=== PATIENT | female | born 1970 | race Caucasian/White ===

== ENCOUNTER 2018-07-22 02:56 | Inpatient (IN) ==
[2018-07-22] MEDS ORDERED: 0.9 % Sodium Chloride 1,000 ML IVC ONE (03:02)
[2018-07-22] MEDS ORDERED: methylPREDNISolone 125 MG/2 ML VIAL IVP ONE (03:02)
[2018-07-22] MEDS ORDERED: Ipratropium/Albuterol Neb 3 ML IH ONE (03:02)
--- NOTE | 2018-07-22 03:08 | Emergency Department Note ---
Disposition Clinical Impression: COPD exacerbation, Hypoxia Disposition: Admitted As Inpatient Condition: Fair SOB HPI - General Chief Complaint: ED Shortness of Breath/Dyspnea Stated Complaint: jonn Time Seen by Provider: 07/22/18 02:58 Source: patient, EMS Mode of arrival: EMS Limitations: no limitations Nursing Notes Reviewed: Yes Vital Signs Reviewed: Yes - History of Present Illness 47-year-old female persists for evaluation of dyspnea. Does have known COPD. Patient does not wear oxygen at home. Patient states she has been out of her medications for the past 3 days. Patient does note some chest pain as well as a productive cough that started today. Patient states she quit smoking yesterday. Denies any abdominal pain. No nausea vomiting. Upon EMS arrival the patient received single DuoNeb prior to arrival. - Related Data Previous Rx's Medication Instructions Recorded Ibuprofen [Motrin] 600 mg PO Q8HR PRN #20 tab 07/24/16 traMADol [Ultram] 50 - 100 mg PO Q8HR PRN #20 tablet 07/24/16 Albuterol Sulfate [Albuterol 2 puff IH Q4HR PRN #1 hfa.aer.ad 12/07/17 Inhaler] RX: Doxycycline 100 mg PO BID 7 Days #14 capsule 12/07/17 predniSONE [PredniSONE] 40 mg PO DAILY 4 Days #8 tablet 12/07/17 Allergies Allergy/AdvReac Type Severity Reaction Status Date / Time No Known Allergies Allergy Verified 07/24/16 10:56 All systems ED: reviewed and negative except as stated. Constitutional: Denies: fever Cardiovascular: Reports: chest pain Respiratory: Reports: cough, dyspnea, wheezes, sputum production Past Medical History - Past Medical History Source: patient Medical history: Reports: asthma, COPD Psychiatric history: Reports: anxiety, depression - Social History Smoking Status: Current every day smoker Smokeless Tobacco Status: No Alcohol use: Reports: none Drug use: Reports: none Physical Exam - General Limitations: no limitations General appearance: alert, in distress - Head Head exam: atraumatic, normocephalic, normal inspection - Eye Eye exam: Present: normal appearance - ENT ENT exam: normal exam, normal oropharynx - Neck Neck exam: Present: normal inspection - Chest Chest inspection: Present: normal inspection, symmetric chest wall rise - Respiratory Respiratory exam: Present: respiratory distress, wheezes (inspiratory and expiratory scatter wheeze), accessory muscle use, prolonged expiratory phase - Cardiovascular Cardiovascular exam: Present: regular rate, tachycardia. Absent: systolic murm ur - Abdominal Exam Abdominal exam: Present: soft, Non-Tender - Extremities Exam Extremities exam: Present: normal inspection. Absent: pedal edema - Back Exam Back exam: Present: normal inspection - Neurological Exam Neurological exam: Present: alert, oriented X3 - Skin Skin exam: Present: warm, dry, intact, normal color Course Course Narrative: Patient seen and examined. Patient is in moderate respiratory distress. A shunt will get BiPAP as well as aerosols and steroids. Patient will get labs chest x-ray. Disposition likely admission for COPD exacerbation versus pneumonia. - Reevaluation(s) Reevaluation #1: Patient seen and examined. Patient's breathing has improved however the patient continues to have diffuse inspiratory respiratory wheezing. Patient will be given additional aerosols. Patient states that she does not want to be intubated Time: 03:29 Reevaluation #2: Patient breathing has improved. Time: 04:24 Reevaluation #3: Resting comfortably without any acute distress. Time: 05:49 Vital Signs Temperature 97.8 F 07/22/18 03:00 Pulse Rate 113 07/22/18 03:00 Respiratory Rate 21 07/22/18 03:00 Blood Pressure 153/104 07/22/18 03:00 O2 Sat by Pulse Oximetry 94 07/22/18 03:00 Temperature 97.8 F 07/22/18 03:00 Pulse Rate 130 07/22/18 04:14 Respiratory Rate 25 07/22/18 04:14 Blood Pressure 152/104 07/22/18 04:14 O2 Sat by Pulse Oximetry 99 07/22/18 04:14 Oxygen Delivery Oxygen Delivery Bipap Shortness of Breath/Dyspnea - [facility] Narrative Medical decision making narrative: Patient presents with a history of COPD. On arrival the patient's tachycardic and tachypnea. Patient had BiPAP initially placed upon arrival given her degree of tachypnea. Patient had diffuse inspiratory expiratory audible wheezes. Pat ient was treated with triple nebs as well as IV steroids. Patient was given additional albuterol. Patient's been resting comfortably. Lungs appear with better aeration. Patient's chest x-ray shows no pneumonia. Patient was started on antibiotics due to the degree of her respiratory distress. Patient states that she would not want to be intubated if her breathing were to decline. Patient also has not requirement which she does not have at baseline. Patient will be admitted for COPD exacerbation with continued aerosols, steroids and oxygen support. Patient's symptoms are not consistent with a PE or ACS. - Lab Data Result diagrams: 07/22/18 04:26 07/22/18 04:26 Lab Results 07/22/18 07/22/18 07/22/18 Range/Units 03:44 04:26 04:26 WBC 8.1 (4.3-11.1) K/mcL RBC 4.00 (3.82-4.97) M/mcL Hgb 11.9 (11.5-15.4) g/dL Hct 35.2 L (35.3-44.9) % MCV 88.0 (83.0-100.0) fL MCH 29.8 (28.0-33.3) pg MCHC 33.8 (31.6-35.5) g/dL RDW 11.7 (11.5-14.5) % Plt Count 258 (140-400) K/mcL MPV 9.7 (9.4-12.4) fL Immature Gran % 0.6 (0-4) % Seg Neutrophils % 80.8 % Lymphocytes % 8.4 % Monocytes % 6.2 % Eosinophils % 3.4 % Basophils % 0.6 % Neutrophils # 6.6 (1.6-8.9) K/mcL Lymphocytes # 0.7 (0.6-4.6) K/mcL Monocytes # 0.5 (0.0-1.3) K/mcL Eosinophils # 0.3 (0.0-0.6) K/mcL Basophils # 0.1 (0.0-0.2) K/mcL Sample Site R Radial ABG pH 7.38 (7.32-7.45) pH Units ABG pCO2 40 (35-45) mmHg ABG pO2 72 L (85-104) mmHg ABG HCO3 24 (21-27) mEq/L ABG Total CO2 25 (20-26) mEq/L ABG O2 Saturation 94 L (95-98) % ABG Base Excess -1 (-2 to 3) mEq/L [place]ver Test Positive O2 Delivery Device BiPAP Inspired O2 28.0 (1-15=lpm [id number]=%) Sodium 134 L (136-145) mEq/L Potassium 3.8 (3.5-5.1) mEq/L Chloride 107 (98-107) mEq/L Carbon Dioxide 23 (23-29) mEq/L BUN 12 (6-20) mg/dL Creatinine 0.60 (0.60-1.20) mg/dL Est GFR ( Amer) > 60 (> 60) Est GFR (Non-Af Amer) > 60 (> 60) BUN/Creatinine Ratio 20 (6-26) Glucose 185 H (70-105) mg/dL Calculated Osmolality 283 (280-300) Lactic Acid (0.5-2.2) mmol/L Calcium 8.7 (8.6-10.3) mg/dL Troponin I < 0.03 (< 0.04) ng/mL B-Natriuretic Peptide (Less than 100) pg/mL 07/22/18 07/22/18 Range/Units 04:26 04:26 WBC (4.3-11.1) K/mcL RBC (3.82-4.97) M/mcL Hgb (11.5-15.4) g/dL Hct (35.3-44.9) % MCV (83.0-100.0) fL MCH (28.0-33.3) pg MCHC (31.6-35.5) g/dL RDW (11.5-14.5) % Plt Count (140-400) K/mcL MPV (9.4-12.4) fL Immature Gran % (0-4) % Seg Neutrophils % % Lymphocytes % % Monocytes % % Eosinophils % % Basophils % % Neutrophils # (1.6-8.9) K/mcL Lymphocytes # (0.6-4.6) K/mcL Monocytes # (0.0-1.3) K/mcL Eosinophils # (0.0-0.6) K/mcL Basophils # (0.0-0.2) K/mcL Sample Site ABG pH (7.32-7.45) pH Units ABG pCO2 (35-45) mmHg ABG pO2 (85-104) mmHg ABG HCO3 (21-27) mEq/L ABG Total CO2 (20-26) mEq/L ABG O2 Saturation (95-98) % ABG Base Excess (-2 to 3) mEq/L Trever Test O2 Delivery Device Inspired O2 (1-15=lpm [id number]=%) Sodium (136-145) mEq/L Potassium (3.5-5.1) mEq/L Chloride (98-107) mEq/L Carbon Dioxide (23-29) mEq/L BUN (6-20) mg/dL Creatinine (0.60-1.20) mg/dL Est GFR ( Amer) (> 60) Est GFR (Non-Af Amer) (> 60) BUN/Creatinine Ratio (6-26) Glucose (70-105) mg/dL Calculated Osmolality (280-300) Lactic Acid 2.0 (0.5-2.2) mmol/L Calcium (8.6-10.3) mg/dL Troponin I (< 0.04) ng/mL B-Natriuretic Peptide 41 (Less than 100) pg/mL - Radiology Data Radiology results reviewed: Yes I reviewed the patient's radiology results. Chest X-Ray 07/22/18 03:02 IMPRESSION: Hyperinflation with mild bronchial wall thickening. No confluent pneumonia. D/ / Sung Macias MD / Sung Macias MD Interpreting Provider: Sung Macias MD - EKG Data EKG attestation: Yes I reviewed and interpreted this EKG. EKG shows normal: Reports: sinus rhythm Rate: Reports: tachycardia Rhythm: Reports: NSR [place]/QRS: Reports: normal P waves: Reports: KEVIN T wave inversions noted in: Reports: v1 (flattened) Interpretation: Reports: no acute changes, nonspecific ST-T wave changes S.B.A.R. - S.B.A.R. Situation: Demographics Background: Presenting Complaint Assessment: Vital Signs, Course and respsone to treatment, Patient/Family Expectation Recommendation: Barrier(s) to disposition, Recommendation based on pending studies, treatments, or consults S.B.A.R. Report Given to: Dr. Antwon LovellBCherylAGil Repor Time: 05:06 Attestation Statement - Attestation Attestation: I examined this patient and my medical decision-making was reviewed with the Resident Physician. I agree with the documented findings, disposition and treatment plan as described except to the extent set forth below. Findings consistent with acute on chronic respiratory failure. Now with COPD exacerbation. Patient was placed on BiPAP. Antibiotics, steroids, bro nchodilators. Admit for further management and workup. 35 minutes of critical care time spent excluding billable procedures.
[2018-07-22] MEDS ORDERED: Albuterol 2.5 MG/3 ML NEBULIZER IH ONE (03:27)
[2018-07-22] MEDS ORDERED: Ketorolac 15 MG/ML VIAL IVP ONE (03:32)
[2018-07-22] MEDS ORDERED: *HR* LORazepam 2 MG/ML VIAL IVP ONE (03:40)
[2018-07-22] MEDS ORDERED: cefTRIAXone 1,000 MG in Water for inj. (sterile) 20 ML 10 ML IVP ONE (03:41)
[2018-07-22] MEDS ORDERED: Azithromycin 500 MG in D5% in Water 250 ML IVPB ONE (03:42)
[2018-07-22 03:53] LABS: ABG Base Excess -1 mEq/L (-2 to 3); ABG HCO3 24 mEq/L (21-27); ABG Oxygen Saturation 94 % (95-98); ABG PCO2 40 mmHg (35-45); ABG PH 7.38 pH Units (7.32-7.45); ABG PO2 72 mmHg (85-104); ABG TCO2 25 mEq/L (20-26)
[2018-07-22 04:52] LABS: Basophils # 0.1 K/mcL (0.0-0.2); Basophils % 0.6 %; Eosinophils # 0.3 K/mcL (0.0-0.6); Eosinophils % 3.4 %; Hematocrit 35.2 % (35.3-44.9); Hemoglobin 11.9 g/dL (11.5-15.4); Immature Granulocytes % 0.6 % (0-4); Lymphocytes # 0.7 K/mcL (0.6-4.6); Lymphocytes % 8.4 %; Mean Corpuscular HGB Conc 33.8 g/dL (31.6-35.5); Mean Corpuscular Hemoglobin 29.8 pg (28.0-33.3); Mean Platelet Volume 9.7 fL (9.4-12.4); Monocytes # 0.5 K/mcL (0.0-1.3); Monocytes % 6.2 %; Neutrophils # 6.6 K/mcL (1.6-8.9); Platelet Count 258 K/mcL (140-400); Red Cell Distribution Width 11.7 % (11.5-14.5); Segmented Neutrophils % 80.8 %
[2018-07-22 05:03] LABS: BUN/Creatinine Ratio 20 (6-26); Blood Urea Nitrogen 12 mg/dL (6-20); Calcium 8.7 mg/dL (8.6-10.3); Carbon Dioxide 23 mEq/L (23-29); Chloride 107 mEq/L (98-107); Glucose 185 mg/dL (70-105); Osmolality,Calculated 283 (280-300); Potassium 3.8 mEq/L (3.5-5.1); Sodium 134 mEq/L (136-145); eGFR For Non-African Americans > 60 (> 60)
[2018-07-22 05:05] LABS: Troponin I < 0.03 ng/mL (< 0.04)
[2018-07-22] MEDS ORDERED: 0.9 % Sodium Chloride 1,000 ML IVC SCH ×2 (05:15→18:36)
--- NOTE | 2018-07-22 07:50 | Internal Med History&Physical ---
Date of Encounter: 07/22/18 Time of Encounter: 07:50 Internal Medicine - H&P: HPI History of present illness: Ms. Pennington is a 47 year old female with PMH of COPD who presented for evaluation of progressive worsening of dyspnea associated cough and productive cough after running out of her medications for the past 3 days. Patient states she quit smoking yesterday. Denies any abdominal pain. No nausea vomiting. She was admitted for further evaluation and management. Past Med Surg Social Fam HX - Past Medical History Medical history: asthma, COPD Psychiatric history: anxiety, depression - Social History Smoking Status: Current every day smoker Smokeless Tobacco Status: No Alcohol use: none Drug use: none - Family History Mother Living Status: Still Living Hx Family Cancer: Yes (breast cancer) Internal Medicine - H&P: Meds RX: Diclofenac Sodium [Voltaren] 75 mg PO BID 07/22/18 [History] RX: Guaifenesin [Mucinex] 600 mg PO BID 07/22/18 [History] RX: HydrOXYzine 10 mg PO Q6H PRN 07/22/18 [History] RX: Montelukast [Singulair] 10 mg PO DAILY 07/22/18 [History] RX: traZODone [TraZODone] 50 mg PO HS 07/22/18 [History] Azithromycin [Azithromycin 6-Tab Pack] 250 mg PO PER PKG DI 5 Days #6 tab 07/25/18 [Rx] RX: Albuterol Sulfate [Albuterol Inhaler] 2 puff IH Q4HR PRN 30 Days #30 hfa.aer.ad 07/25/18 [Rx] RX: Citalopram Hydrobromide [Citalopram HBr] 20 mg PO DAILY 30 Days #30 tablet 07/25/18 [Rx] RX: Fluticasone/Vilanterol [Breo Ellipta 100-25 Mcg INH] 1 puff IH DAILY 30 Days #1 blst.w.dev 07/25/18 [Rx] RX: Tiotropium [place] [Spiriva Respimat] 2 puff IH DAILY 30 Days #1 mist.inhal 07/25/18 [Rx] predniSONE [PredniSONE] 40 mg PO DAILY 5 Days #10 tablet 07/25/18 [Rx] Allergy/AdvReac Type Severity Reaction Status Date / Time No Known Allergies Allergy Verified 07/24/16 10:56 All Systems PM: A 10-system review of systems was performed and is negative for pertinent findings except as documented above in the HPI. - Constitutional Constitutional: no chills, no fever(s), no night sweats - Cardiovascular Cardiovascular ROS IM: dyspnea, no chest pain, no diaphoresis, no lightheadedness, no palpitations, no syncope - Respiratory Respiratory: cough, dyspnea, wheezing, no excessive phlegm production - Gastrointestinal Gastrointestinal: no abdominal pain, no diarrhea, no hematemesis, no hematochezia, no melena, no nausea, no vomiting - Neurological Neurological ROS: no confusion, no convulsions, no focal weakness, no numbness, no tingling, no tremor(s) - Constitutional Vitals: Temp Pulse Resp BP Pulse Ox 98.2 F 121 22 159/110 95 07/22/18 06:23 07/22/18 06:23 07/22/18 06:23 07/22/18 06:23 07/22/18 06:47 General appearance: Present: A&O X 3 Exam: As below - Head Head exam: Present: atraumatic, normocephalic - Neck Neck exam general surgery: Present: supple, trachea midline. Absent: lymphadenopathy - Respiratory Respiratory exam: Present: decreased breath sounds, rhonchi, wheezes. Absent: accessory muscle use, rales - Cardiovascular Cardiovascular exam: Present: RRR, +S1, +S2. Absent: diastolic murmur, gallop, rubs, systolic murmur - GI/Abdominal GI/Abdominal exam: Present: normal bowel sounds, soft, no peritoneal signs. Absent: distended, tenderness - Extremities Exam Extremities exam: Present: warm, radial pulses palpable and symmetrical. Absent: calf tenderness, cyanotic, pedal edema Internal Med - H&P Results - Labs CBC & Chem 7: 07/25/18 03:25 07/25/18 03:25 Labs: Short CBC 07/22/18 Range/Units 04:26 WBC 8.1 (4.3-11.1) K/mcL Hgb 11.9 (11.5-15.4) g/dL Hct 35.2 L (35.3-44.9) % Plt Count 258 (140-400) K/mcL Neutrophils # 6.6 (1.6-8.9) K/mcL BMP 07/22/18 04:26 Sodium 134 L Potassium 3.8 Chloride 107 Carbon Dioxide 23 BUN 12 Creatinine 0.60 Glucose 185 H Calcium 8.7 Cardiac Enzymes 07/22/18 Range/Units 04:26 Troponin I < 0.03 (< 0.04) ng/mL - ABG Interpretation ABG results: 07/22/18 03:44 ABG pH 7.38 ABG pCO2 40 ABG pO2 72 L ABG HCO3 24 ABG Total CO2 25 ABG O2 Saturation 94 L ABG Base Excess -1 - Impressions ITS Impressions Chest X-Ray 07/22/18 03:02 IMPRESSION: Hyperinflation with mild bronchial wall thickening. No confluent pneumonia. D/ / Sung Macias MD / Sung Macias MD Interpreting Provider: Sung Macias MD - Assessment and plan (1) COPD exacerbation Status: Acute Assessment and plan: - SOB due to *Asthma exacerbation caused by URTI, medication nonocompliance PLAN: - Aerosols q 4 hr and PRN SOB - Solu-medrol 40 mg IV q 6 hr - O2 to keep SpO2 higher than 92% (SpO higher than 95% if CAD) - CBCD, BMP in AM - Sputum Gram stain, C+S - Tylenol 650 mg PO q 4-6 hr PRN pain/fever - Heparin 5000 U SQ BID - Home meds - check the list and restart - ABs (2) Tachycardia Status: Acute Assessment and plan: She appeared to be on the dry side, will start fluid hydration. (3) Anxiety Status: Acute Assessment and plan: We will cont home meds (4) Depression Status: Acute Assessment and plan: Continue home meds Qualifiers: Qualified Code(s): F32.9 - Major depressive disorder, single episode, unspecified (5) DVT prophylaxis Status: Acute Assessment and plan: Heparin 5000 BID - Time Spent With Patient Total time spent is greater than 50% in coordination of care (as documented) at patient's floor/unit and/or counseling patient:
[2018-07-22] MEDS ORDERED: Naloxone 0.4 MG/ML INJ IVP PRN (08:42)
[2018-07-22 09:53] LABS: Chol/HDL Ratio 3.6 (0-4.9)
[2018-07-22] MEDS: MethylPREDNISolone 40 MG/ML VIAL IVP SCH ×3 (11:35→23:50)
[2018-07-22] MEDS: Diclofenac Sodium 75 MG TABLET PO SCH ×2 (14:14→20:02)
[2018-07-22] MEDS: Ipratropium/Albuterol Neb 3 ML IH SCH ×2 (16:29→20:27)
[2018-07-22 17:10] LABS: Bilirubin,Urine Negative (Negative); Blood,Urine Moderate (Negative); Clarity,Urine Clear (Clear); Color,Urine Yellow (Yellow); Glucose,Urine (UA) 100 mg/dL (Normal); Ketones,Urine Trace mg/dL (Negative); Leukocyte Esterase,Urine Negative (Negative); Nitrite,Urine Negative (Negative); Protein,Urine 30 mg/dL (Neg-Trace); Specific Gravity,Urine > 1.030 (1.010-1.025); Urobilinogen,Urine Normal (Normal)
[2018-07-22 17:12] LABS: Bacteria,Urine None Seen per hpf (None-Few); Hyaline Casts,Urine None Seen per lpf (None-Few); RBC,Urine 15-30 per hpf (0-3); Squamous Epithelial Cell,Urine Many per lpf (None-Few); WBC,Urine 0-3 per hpf (0-3)
[2018-07-22] MEDS: Acetaminophen 325 MG TABLET PO PRN (19:35)
[2018-07-22] MEDS: traZODone 50 MG TABLET PO SCH (20:02)
[2018-07-22] MEDS: *HR* Heparin 5,000 UNIT/ML VIAL SQ SCH (23:49)
[2018-07-23] MEDS: cefTRIAXone 1,000 MG in Water for inj. (sterile) 20 ML 10 ML IVP SCH (03:44)
[2018-07-23] MEDS: Azithromycin 500 MG in D5% in Water 250 ML IVPB SCH (03:44)
[2018-07-23] MEDS: Ipratropium/Albuterol Neb 3 ML IH SCH ×4 (03:51→22:00)
[2018-07-23 06:02] LABS: Hematocrit 32.5 % (35.3-44.9); Hemoglobin 11.1 g/dL (11.5-15.4); Mean Corpuscular HGB Conc 34.2 g/dL (31.6-35.5); Mean Corpuscular Hemoglobin 30.2 pg (28.0-33.3); Mean Corpuscular Volume 88.6 fL (83.0-100.0); Mean Platelet Volume 9.9 fL (9.4-12.4); Platelet Count 268 K/mcL (140-400); Red Blood Count 3.67 M/mcL (3.82-4.97); Red Cell Distribution Width 11.8 % (11.5-14.5)
[2018-07-23] MEDS: *HR* Heparin 5,000 UNIT/ML VIAL SQ SCH ×3 (06:10→21:05)
[2018-07-23] MEDS: MethylPREDNISolone 40 MG/ML VIAL IVP SCH ×3 (06:11→18:35)
[2018-07-23 06:34] LABS: Alanine Aminotransferase 16 Units/L (7-52); Albumin 3.9 g/dL (3.5-5.7); Albumin/Globulin Ratio 1.8 (1.1-2.2); Alkaline Phosphatase 63 Units/L (34-104); Aspartate Amino Transferase 11 Units/L (13-39); BUN/Creatinine Ratio 22 (6-26); Bilirubin,Total 0.2 mg/dL (0.3-1.0); Blood Urea Nitrogen 14 mg/dL (6-20); Carbon Dioxide 23 mEq/L (23-29); Chloride 105 mEq/L (98-107); Globulin 2.2 g/dL (2.4-3.5); Glucose 206 mg/dL (70-105); Osmolality,Calculated 286 (280-300); Phosphorous 4.1 mg/dL (2.7-4.5); Potassium 4.1 mEq/L (3.5-5.1); Sodium 135 mEq/L (136-145); Total Protein 6.1 g/dL (6.4-8.9); eGFR For Non-African Americans > 60 (> 60)
[2018-07-23] MEDS ORDERED: (Tiotropium Bromide [Spiriva Respimat] 2 PUFF) IH SCH (10:00)
[2018-07-23] MEDS ORDERED: (Fluticasone/Vilanterol [Breo Ellipta 100-25 Mcg Inh]) IH SCH (10:00)
[2018-07-23] MEDS: Acetaminophen 325 MG TABLET PO PRN (10:14)
[2018-07-23] MEDS: Diclofenac Sodium 75 MG TABLET PO SCH ×2 (10:14→21:05)
--- NOTE | 2018-07-23 10:18 | Internal Med Progress Note ---
Hospitalist Progress Note - Encounter Date of Encounter: 07/23/18 Time of Encounter: 10:00 - Exam Vitals: Temp Pulse Resp BP Pulse Ox 97.3 F L 89 20 129/93 97 07/23/18 07:07 07/23/18 07:07 07/23/18 07:07 07/23/18 07:07 07/23/18 07:07 Exam: Gen - Awake, alert, oriented x 3, no acute distress HEENT - NCAT, PERRLA, EOMI, hearing grossly intact, oropharynx benign CV - RRR, normal S1 and S2, no M/R/G, no BLE edema Resp -Has diffuse wheezes GI - Soft, NT/ND, no masses, normal bowel sounds, Skin - Warm, dry, no rashes/lesions/ulcers Psych - Normal mood and affect, no depression or anxiety - Assessment and Plan (1) Acute respiratory failure with hypoxia Current Visit: Yes Status: Acute Assessment and Plan: Likely secondary to acute COPD exacerbation. Patient requiring up to 4L to keep her sats above 93%. Wean off as tolerated Continue BIPAP, nebs, steroids and antibiotics (2) COPD exacerbation Current Visit: Yes Status: Acute Assessment and Plan: Acute hypoxic respiratory with acute COPD exacerbation Will continue on duonebs, IV steroids and antibiotics. Continue BIPAP as needed (3) Tachycardia Current Visit: Yes Status: Acute Assessment and Plan: Continue IV fluids. CT angio negative for PE, showed evidence of advanced emphysema (4) Anxiety Current Visit: Yes Status: Acute Assessment and Plan: We will cont home meds (5) Depression Current Visit: Yes Status: Acute (6) DVT prophylaxis Current Visit: Yes Status: Acute Assessment and Plan: Heparin 5000 BID - Time Spent with Patient Total time spent is greater than 50% in coordination of care (as documented) at patient's floor/unit and/or counseling patient: Internal Medicine: Result - Labs CBC & Chem 7: 07/23/18 05:18 07/23/18 05:18 Labs: Short CBC 07/23/18 Range/Units 05:18 WBC 10.5 (4.3-11.1) K/mcL Hgb 11.1 L (11.5-15.4) g/dL Hct 32.5 L (35.3-44.9) % Plt Count 268 (140-400) K/mcL BMP 07/23/18 05:18 Sodium 135 L Potassium 4.1 Chloride 105 Carbon Dioxide 23 BUN 14 Creatinine 0.65 Glucose 206 H Calcium 9.0 Cardiac Enzymes 07/22/18 07/22/18 Range/Units 14:32 20:59 Troponin I < 0.03 < 0.03 (< 0.04) ng/mL Liver Function 07/23/18 Range/Units 05:18 Total Bilirubin 0.2 L (0.3-1.0) mg/dL AST 11 L (13-39) Units/L ALT 16 (7-52) Units/L Alkaline Phosphatase 63 (34-104) Units/L Albumin 3.9 (3.5-5.7) g/dL Urine 07/22/18 Range/Units 17:00 Urine Color Yellow (Yellow) Urine Clarity Clear (Clear) Urine pH 6.0 (5.0-8.0) pH Units Ur Specific [place] > 1.030 H (1.010-1.025) Urine Protein 30 H (Neg-Trace) mg/dL Urine Glucose (UA) 100 H (Normal) mg/dL - ABG Interpretation ABG results: ABG ABG pH 7.38 pH Units (7.32-7.45) 07/22/18 03:44 ABG pCO2 40 mmHg (35-45) 07/22/18 03:44 ABG pO2 72 mmHg (85-104) L 07/22/18 03:44 ABG O2 Saturation 94 % (95-98) L 07/22/18 03:44 Consult Discharge Plan - Plan Referrals: NONE,PCP [Primary Care Provider] -
[2018-07-23] MEDS ORDERED: Isovue-370 500 ML INFUS..BTL IV ONE (12:07)
[2018-07-23] MEDS: 0.9 % Sodium Chloride 1,000 ML IVC SCH (15:09)
[2018-07-23] MEDS: traZODone 50 MG TABLET PO SCH (21:05)
[2018-07-24] MEDS: 0.9 % Sodium Chloride 1,000 ML IVC SCH ×3 (00:54→23:01)
[2018-07-24] MEDS: Ipratropium/Albuterol Neb 3 ML IH SCH ×4 (03:17→21:55)
[2018-07-24] MEDS: cefTRIAXone 1,000 MG in Water for inj. (sterile) 20 ML 10 ML IVP SCH (03:45)
[2018-07-24] MEDS: Azithromycin 500 MG in D5% in Water 250 ML IVPB SCH (03:46)
[2018-07-24 04:33] LABS: Basophils % 0.1 %; Hematocrit 32.2 % (35.3-44.9); Hemoglobin 10.7 g/dL (11.5-15.4); Immature Granulocytes % 1.1 % (0-4); Lymphocytes # 1.2 K/mcL (0.6-4.6); Lymphocytes % 11.3 %; Mean Corpuscular HGB Conc 33.2 g/dL (31.6-35.5); Mean Corpuscular Hemoglobin 29.9 pg (28.0-33.3); Mean Corpuscular Volume 89.9 fL (83.0-100.0); Mean Platelet Volume 9.8 fL (9.4-12.4); Monocytes # 0.5 K/mcL (0.0-1.3); Neutrophils # 8.5 K/mcL (1.6-8.9); Platelet Count 263 K/mcL (140-400); Red Blood Count 3.58 M/mcL (3.82-4.97); Red Cell Distribution Width 11.8 % (11.5-14.5); Segmented Neutrophils % 82.5 %
[2018-07-24 04:50] LABS: BUN/Creatinine Ratio 28 (6-26); Blood Urea Nitrogen 17 mg/dL (6-20); Calcium 8.9 mg/dL (8.6-10.3); Carbon Dioxide 24 mEq/L (23-29); Chloride 106 mEq/L (98-107); Glucose 152 mg/dL (70-105); Osmolality,Calculated 287 (280-300); Phosphorous 4.4 mg/dL (2.7-4.5); Potassium 4.4 mEq/L (3.5-5.1); Sodium 136 mEq/L (136-145); eGFR For Non-African Americans > 60 (> 60)
[2018-07-24] MEDS: MethylPREDNISolone 40 MG/ML VIAL IVP SCH ×2 (06:15→17:07)
[2018-07-24] MEDS: *HR* Heparin 5,000 UNIT/ML VIAL SQ SCH ×3 (06:15→23:01)
[2018-07-24] MEDS: Diclofenac Sodium 75 MG TABLET PO SCH ×2 (10:01→19:59)
[2018-07-24] MEDS: Acetaminophen 325 MG TABLET PO PRN (10:04)
[2018-07-24] MEDS: Budesonide/Formoterol 160/4.5 1 PUFF INH IH SCH ×2 (10:37→21:55)
--- NOTE | 2018-07-24 10:45 | Internal Med Progress Note ---
Hospitalist Progress Note - Encounter Date of Encounter: 07/24/18 Time of Encounter: 08:30 - Exam Vitals: Temp Pulse Resp BP Pulse Ox 98.7 F 89 17 126/83 100 07/23/18 22:18 07/24/18 06:37 07/24/18 06:37 07/24/18 06:37 07/24/18 06:37 Exam: Gen - Awake, alert, oriented x 3, no acute distress HEENT - NCAT, PERRLA, EOMI, hearing grossly intact, oropharynx benign CV - RRR, normal S1 and S2, no M/R/G, no BLE edema Resp -Has diffuse wheezes GI - Soft, NT/ND, no masses, normal bowel sounds, Skin - Warm, dry, no rashes/lesions/ulcers Psych - Normal mood and affect, no depression or anxiety - Assessment and Plan (1) Acute respiratory failure with hypoxia Current Visit: Yes Status: Acute Assessment and Plan: Likely secondary to acute COPD exacerbation. Patient requiring up to 4L to keep her sats above 93%. Wean off as tolerated Continue BIPAP, nebs, steroids and antibiotics (2) COPD exacerbation Current Visit: Yes Status: Acute Assessment and Plan: Acute hypoxic respiratory with acute COPD exacerbation Will continue on duonebs, IV steroids and antibiotics. Continue BIPAP as needed (3) Tachycardia Current Visit: Yes Status: Acute Assessment and Plan: Continue IV fluids. CT angio negative for PE, showed evidence of advanced emphysema HR more controlled now with hydration (4) Anxiety Current Visit: Yes Status: Acute Assessment and Plan: We will cont home meds (5) Depression Current Visit: Yes Status: Acute Assessment and Plan: Continue home meds (6) DVT prophylaxis Current Visit: Yes Status: Acute Assessment and Plan: Heparin 5000 BID - Time Spent with Patient Total time spent is greater than 50% in coordination of care (as documented) at patient's floor/unit and/or counseling patient: Internal Medicine: Result - Labs CBC & Chem 7: 07/24/18 04:16 07/24/18 04:16 Labs: Short CBC 07/24/18 Range/Units 04:16 WBC 10.3 (4.3-11.1) K/mcL Hgb 10.7 L (11.5-15.4) g/dL Hct 32.2 L (35.3-44.9) % Plt Count 263 (140-400) K/mcL Neutrophils # 8.5 (1.6-8.9) K/mcL BMP 07/24/18 04:16 Sodium 136 Potassium 4.4 Chloride 106 Carbon Dioxide 24 BUN 17 Creatinine 0.60 Glucose 152 H Calcium 8.9 - ABG Interpretation ABG results: ABG ABG pH 7.38 pH Units (7.32-7.45) 07/22/18 03:44 ABG pCO2 40 mmHg (35-45) 07/22/18 03:44 ABG pO2 72 mmHg (85-104) L 07/22/18 03:44 ABG O2 Saturation 94 % (95-98) L 07/22/18 03:44 - Impressions Impressions Chest CTA 07/23/18 14:00 IMPRESSION: No evidence of pulmonary embolism or acute pulmonary abnormality. Evidence of emphysema which is fairly advanced considering the patient's age. D/ / Polina Saldñaa MD / Polina Saldaña MD Interpreting Provider: Polina Saldaña MD Consult Discharge Plan - Plan Referrals: Arvin Watkins CNP [Non-Partnered Physician] - 07/29/18 9:15 am
[2018-07-24] MEDS: traZODone 50 MG TABLET PO SCH (19:59)
[2018-07-25] MEDS: cefTRIAXone 1,000 MG in Water for inj. (sterile) 20 ML 10 ML IVP SCH (03:47)
[2018-07-25] MEDS: Acetaminophen 325 MG TABLET PO PRN (03:53)
[2018-07-25] MEDS: Ipratropium/Albuterol Neb 3 ML IH SCH ×2 (04:22→10:59)
[2018-07-25 04:56] LABS: Basophils % 0.1 %; Hematocrit 31.1 % (35.3-44.9); Hemoglobin 10.3 g/dL (11.5-15.4); Immature Granulocytes % 1.6 % (0-4); Lymphocytes # 1.4 K/mcL (0.6-4.6); Mean Corpuscular HGB Conc 33.1 g/dL (31.6-35.5); Mean Corpuscular Hemoglobin 29.8 pg (28.0-33.3); Mean Corpuscular Volume 89.9 fL (83.0-100.0); Monocytes # 0.4 K/mcL (0.0-1.3); Monocytes % 6.1 %; Neutrophils # 4.8 K/mcL (1.6-8.9); Platelet Count 265 K/mcL (140-400); Red Blood Count 3.46 M/mcL (3.82-4.97); Red Cell Distribution Width 11.9 % (11.5-14.5); Segmented Neutrophils % 71.2 %
[2018-07-25 05:16] LABS: BUN/Creatinine Ratio 29 (6-26); Blood Urea Nitrogen 17 mg/dL (6-20); Calcium 8.8 mg/dL (8.6-10.3); Carbon Dioxide 26 mEq/L (23-29); Chloride 106 mEq/L (98-107); Glucose 120 mg/dL (70-105); Magnesium 1.9 mg/dL (1.6-2.6); Osmolality,Calculated 289 (280-300); Phosphorous 3.7 mg/dL (2.7-4.5); Potassium 3.9 mEq/L (3.5-5.1); Sodium 138 mEq/L (136-145); eGFR For Non-African Americans > 60 (> 60)
[2018-07-25] MEDS: MethylPREDNISolone 40 MG/ML VIAL IVP SCH (06:29)
[2018-07-25] MEDS: *HR* Heparin 5,000 UNIT/ML VIAL SQ SCH (06:29)
[2018-07-25 06:52] VITALS: BP 142/91
[2018-07-25] MEDS: Diclofenac Sodium 75 MG TABLET PO SCH (08:09)
[2018-07-25] MEDS: 0.9 % Sodium Chloride 1,000 ML IVC SCH (08:09)
[2018-07-25] MEDS ORDERED: Azithromycin 250 MG TABLET PO SCH (09:00)
--- NOTE | 2018-07-25 09:36 | Discharge Summary ---
Orders not resulted at time of discharge: Pending orders 07/26/18 04:00 Basic Metabolic Panel AM 0400 CBC [Complete Blood Count] [HEME] AM 0400 Magnesium AM 0400 Phosphorous AM 0400 07/27/18 04:00 Basic Metabolic Panel AM 0400 CBC [Complete Blood Count] [HEME] AM 0400 Magnesium AM 0400 Phosphorous AM 0400 07/28/18 04:00 Basic Metabolic Panel AM 0400 CBC [Complete Blood Count] [HEME] AM 0400 Magnesium AM 0400 Phosphorous AM 0400 07/29/18 04:00 Basic Metabolic Panel AM 0400 CBC [Complete Blood Count] [HEME] AM 0400 Magnesium AM 0400 Phosphorous AM 0400 Date of Encounter: 07/25/18 Time of Encounter: 09:30 - Discharge Diagnosis (1) Acute respiratory failure with hypoxia Priority: Primary Status: Acute Assessment and Plan: 47 year old female with PMH of COPD who presented for evaluation of progressive worsening of dyspnea associated cough and productive cough after running out of her medications for the past 3 days. Patient states she quit smoking the day prior to coming in. She was assessed with acute hypoxic respiratory failure likely secondary to acute COPD exacerbation. She was requiring up to 4L to keep her sats above 93% on admission. She was started on BIPAP, duonebs, steroids and antibiotics. She made a remarkable improvement and was able to weaned completely off supplemental oxygen. She was counseled regarding smoking cessation. She was discharged home to complete a course of prednisone and antibiotics. Her meds were refilled on discharge (2) COPD exacerbation Priority: Primary Status: Acute (3) Tachycardia Priority: Primary Status: Acute (4) Anxiety Priority: Primary Status: Acute (5) Depression Priority: Primary Status: Acute Qualifiers: Qualified Code(s): F32.9 - Major depressive disorder, single episode, unspecified (6) DVT prophylaxis Priority: Primary Status: Acute Hospital course: Ms. Pennington is a 47 year old female - Time Spent with Patient Total time spent providing and/or coordinating discharge services: - Discharge Medications Prescriptions: Albuterol Sulfate [Albuterol Inhaler] 2 puff IH Q4HR PRN 30 Days #30 hfa.aer.ad PRN Reason: wheeze Azithromycin [Azithromycin 6-Tab Pack] 250 mg PO PER PKG DI 5 Days #6 tab Citalopram Hydrobromide [Citalopram HBr] 20 mg PO DAILY 30 Days #30 tablet Fluticasone/Vilanterol [Breo Ellipta 100-25 Mcg INH] 1 puff IH DAILY 30 Days #1 blst.w.dev predniSONE [PredniSONE] 40 mg PO DAILY 5 Days #10 tablet Tiotropium [place] [Spiriva Respimat] 2 puff IH DAILY 30 Days #1 mist.inhal Home Medications: Diclofenac Sodium [Voltaren] 75 mg PO BID 07/22/18 [History] Guaifenesin [Mucinex] 600 mg PO BID 07/22/18 [History] HydrOXYzine 10 mg PO Q6H PRN 07/22/18 [History] Montelukast [Singulair] 10 mg PO DAILY 07/22/18 [History] traZODone [TraZODone] 50 mg PO HS 07/22/18 [History] Albuterol Sulfate [Albuterol Inhaler] 2 puff IH Q4HR PRN 30 Days #30 hfa.aer.ad 07/25/18 [Rx] Azithromycin [Azithromycin 6-Tab Pack] 250 mg PO PER PKG DI 5 Days #6 tab 07/25/18 [Rx] Citalopram Hydrobromide [Citalopram HBr] 20 mg PO DAILY 30 Days #30 tablet 07/25/18 [Rx] Fluticasone/Vilanterol [Breo Ellipta 100-25 Mcg INH] 1 puff IH DAILY 30 Days #1 blst.w.dev 07/25/18 [Rx] Tiotropium [place] [Spiriva Respimat] 2 puff IH DAILY 30 Days #1 mist.inhal 07/25/18 [Rx] predniSONE [PredniSONE] 40 mg PO DAILY 5 Days #10 tablet 07/25/18 [Rx] Allergies/Adverse Reactions: Allergy/AdvReac Type Severity Reaction Status Date / Time No Known Allergies Allergy Verified 07/24/16 10:56 Date of admission: 07/24/18 14:29 Primary care physician: PCP NONE Consults: 07/22/18 08:43 Consult to Nurse Navigator [CONS] Routine Comment: - Constitutional Vitals: Temp Pulse Resp BP Pulse Ox 97.6 F 93 17 142/91 95 07/25/18 06:51 07/25/18 06:51 07/25/18 06:51 07/25/18 06:51 07/25/18 06:51 General appearance: Present: A&O X 3 Exam: Gen - Awake, alert, oriented x 3, no acute distress HEENT - NCAT, PERRLA, EOMI, hearing grossly intact, oropharynx benign CV - RRR, normal S1 and S2, no M/R/G, no BLE edema Resp -CTAB GI - Soft, NT/ND, no masses, normal bowel sounds, Skin - Warm, dry, no rashes/lesions/ulcers Psych - Normal mood and affect, no depression or anxiety - Patient Status Disposition: Home, Self-Care Condition: Fair - Discharge Instructions Instructions: Prednisone (By mouth), Azithromycin (By mouth), Acute Respiratory Distress Syndrome (DC), Depression (DC), Chronic Obstructive Pulmonary Disease (DC), Anxiety (DC) Follow Up With: Arvin Watkins CNP [Non-Partnered Physician] - 07/29/18 9:15 am
[2018-07-25] MEDS: Budesonide/Formoterol 160/4.5 1 PUFF INH IH SCH (10:59)
--- NOTE | 2018-07-26 19:05 | Electrocardiograph Report ---
[place] [id number] Test Date: 2018-07-22 Pat Name: Rosalva Pennington Department: [id number] Room: 2NE29 Gender: F [employer]: : [id number] Requested By: Juan Rosales Order Number: [id number] Reading MD: Chad Mcgraw Measurements Intervals [place] Rate: 113 P: 87 PA: 156 QRS: 90 QRSD: 96 T: 49 QT: 329 QTc: 452 Interpretive Statements Sinus tachycardia Right atrial enlargement Borderline right axis deviation Minimal ST depression, inferior leads Electronically Signed On 07-26-2018 19:03:14 EDT by Chad Mcgraw
== END 2018-07-25 13:27 | disposition home or self-care (01) | DRG 140 ==
LOC: 2NENU 02:56 → EMEROOARM 02:56 → 2NENU 06:10 → SUATTDRO 07-24 14:29
PROVIDERS: ADMIT Pediatrics; ATTEND Student in an Organized Health Care Education/Training Program